=== PATIENT | male | born 1970 | race Caucasian/White ===

== ENCOUNTER 2025-04-28 09:24 | Emergency (ER) | payer MEDICAID, OTHER ==
[2025-04-28 09:59] VITALS: RESP 18
[2025-04-28] MEDS: LIDOCAINE 1%-EPI 1:100,000 20 ML VIAL SQ STA (10:13)
[2025-04-28] MEDS: ACETAMINOPHEN TAB 500 MG TAB PO STA (10:13)
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
[2025-04-28 10:26] LABS: Basophils # (A) 0.03 10*3/uL (0.00-0.10); Basophils % (A) 0.2 %; Eosinophils # (A) 0.01 10*3/uL (0.04-0.35); Eosinophils % (A) 0.1 %; HCT 32.5 % (39.6-50.0); HGB 11.3 g/dL (13.0-17.0); Lymphocytes # (A) 1.34 10*3/uL (0.90-5.00); Lymphocytes % (A) 9.6 %; MCH 30.7 pg (27.0-32.0); MCHC 34.8 g/dL (32.0-37.0); MCV 88.3 fL (80.0-97.0); Monocytes # (A) 0.98 10*3/uL (0.20-1.00); Monocytes % (A) 7.0 %; Neutrophils # (A) 11.52 10*3/uL (1.80-7.70); Neutrophils % (A) 82.2 %; Platelet Count 261 10*3/uL (140-440); RBC 3.68 10*6/uL (4.40-5.60); RDW 13.2 % (11.5-14.5); WBC 14.00 10*3/uL (4.50-10.00)
[2025-04-28] MEDS: SODIUM CHLORIDE 0.9% 1,000 ML IV ONE (10:32)
[2025-04-28 10:43] LABS: INR 1.1 (<1.2); Partial Thromboplastin Time 23.0 sec (22.0-30.0); Prothrombin Time 11.6 sec (10.0-12.5)
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
[2025-04-28 10:57] LABS: ALT 64 U/L (4-49); AST 75 U/L (17-59); African American GFR (CKD) 75 (>60 ml/min/1.73 sqM); Albumin 4.2 g/dL (3.5-5.0); Alkaline Phosphatase 66 U/L (38-126); Anion Gap 14 mmol/L; Blood Urea Nitrogen 19 mg/dL (9-20); Calcium 9.0 mg/dL (8.4-10.2); Carbon Dioxide 19 mmol/L (22-30); Chloride 101 mmol/L (98-107); Creatine Kinase 922 U/L (55-170); Glucose 136 mg/dL (74-99); Non-African American GFR(CKD) 65 (>60 ml/min/1.73 sqM); Potassium 4.8 mmol/L (3.5-5.1); Sodium 134 mmol/L (137-145); Total Protein 7.1 g/dL (6.3-8.2)
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
[2025-04-28 11:20] VITALS: TEMP 98
[2025-04-28 12:05] VITALS: BP 130/74; PULSE 87
== END 2025-04-28 12:06 | disposition home or self-care (01) ==
LOC: EC 09:24
DX: S52.201A Unspecified fracture of shaft of right ulna, initial encounter for closed fracture (principal); S09.90XA Unspecified injury of head, initial encounter; I10 Essential (primary) hypertension; V89.2XXA Person injured in unspecified motor-vehicle accident, traffic, initial encounter; Y93.55 Activity, bike riding
CPT/HCPCS: 12013; 36415; 70450; 70486; 72125; 80053; 80320; 82550; 85025; 85610; 85730; 93005; 96360; 99285